=== PATIENT | male | born 2000 | race Hispanic/Latino ===

== ENCOUNTER 2022-11-12 17:58 | Emergency (ER) | payer BC ==
[2022-11-12] MEDS ORDERED: LORazepam 2 MG/ML VIAL ONE (18:39)
[2022-11-12 18:59] LABS: Absolute Lymphocytes (CBC) 2.6 K/uL (0.7-4.9); Lymphocytes % 18.6 % (15.3-44.8); MCV 88.4 fL (80-100); MPV 8.4 fL (7.6-11.3); RBC Red Blood Cell Count 5.43 M/uL (4.33-5.43)
[2022-11-12 19:09] LABS: Barbiturates NEGATIVE (NEGATIVE); Benzodiazepines NEGATIVE (NEGATIVE); Cocaine NEGATIVE (NEGATIVE); METHAMPHETAM NEGATIVE (NEGATIVE); Methadone NEGATIVE (NEGATIVE); Opiates NEGATIVE (NEGATIVE); Phencyclidine NEGATIVE (NEGATIVE); THC Cannibis NEGATIVE (NEGATIVE)
[2022-11-12 19:13] LABS: Protime INR 0.95
[2022-11-12 19:23] LABS: Albumin 4.6 g/dL (3.4-5.0); Bilirubin Direct 0.1 mg/dL (0-0.2); Bilirubin Total 0.4 mg/dL (0.2-1.0); Magnesium 2.2 mg/dL (1.6-2.4); Potassium 3.2 mmol/L (3.5-5.1); Protein, Total 8.4 g/dL (6.4-8.2); Troponin High Sensitivity 5.9 pg/mL (<58.9)
[2022-11-12] MEDS ORDERED: NA CHLORIDE 0.9% 500 ML ONE (19:37)
[2022-11-12] MEDS ORDERED: METHYLPREDNISOLONE 40 MG INJ ONE (19:37)
--- NOTE | 2022-11-12 20:04 | RAD REPORT ---
EXAM DESCRIPTION: RAD - Chest Single View - 11/12/2022 7:39 pm CLINICAL HISTORY: SOB Chest pain. COMPARISON: No comparisons FINDINGS: Portable technique limits examination quality. The lungs are grossly clear. The heart is normal in size. No displaced fractures. IMPRESSION: No acute intrathoracic process suspected.
--- NOTE | 2022-11-12 20:35 | EDPHYS ---
Physician Documentation [facility] Name: Ayden Danielle Age: 21 yrs Sex: Male : 2000 Arrival Date: 11/12/2022 Time: 18:00 Bed 5 Private MD: ED Physician Aram Cano HPI: 11/12 18:24 This 21 yrs old Male presents to ER via Ambulatory with complaints of cp Palpitations, Shortness Of Breath, Numbness Of Hand. 18:24 The patient has shortness of breath at rest. cp 18:24 Onset: The symptoms/episode began/occurred 3 day(s) ago. Duration: The symptoms are cp intermittent, with no pattern. The patient presents with a history of heart racing. Context: The symptoms occur without known cause. Associated signs and symptoms: Pertinent positives: numbness in extremities, Pertinent negatives: chest pain, diaphoresis, dizziness, fever, vomiting. Severity of symptoms: in the emergency department the symptoms are worse moderately. Patient denies any family history of cardiac disease and/or sudden at young age. Historical: - Allergies: 18:11 No Known Allergies; hb - Home Meds: 18:11 None [Active]; hb - PMHx: 18:11 None; hb - PSHx: 18:11 None; hb - Immunization history:: Adult Immunizations up to date. - Social history:: Smoking status: Patient denies any tobacco usage or history of. ROS: 18:30 Constitutional: Negative for body aches, chills, fever, poor PO intake. cp 18:30 Eyes: Negative for injury, pain, redness, and discharge. cp 18:30 ENT: Negative for drainage from ear(s), ear pain, sore throat, difficulty swallowing, difficulty handling secretions. 18:30 Cardiovascular: Positive for palpitations, Negative for chest pain, edema. 18:30 Respiratory: Positive for shortness of breath, at rest. Negative for cough. 18:30 Abdomen/GI: Negative for abdominal pain, vomiting, diarrhea, constipation. 18:30 Back: Negative for pain at rest, pain with movement, radiated pain. 18:30 Skin: Negative for rash. 18:30 Neuro: Positive for numbness, Negative for altered mental status, dizziness, headache, weakness. 18:30 All other systems are negative. Exam: 18:22 ECG was reviewed by the Attending Physician. cp 18:33 Constitutional: The patient appears in no acute distress, alert, awake, cp non-diaphoretic, non-toxic, well developed, well nourished, anxious. 18:33 Head/Face: Normocephalic, atraumatic. cp 18:33 Eyes: Periorbital structures: appear normal, Pupils: equal, round, and reactive to light and accomodation, Extraocular movements: intact throughout, Conjunctiva: normal, no exudate, no injection, Sclera: no appreciated abnormality, Lids and lashes: appear normal, bilaterally. 18:33 ENT: External ear(s): are unremarkable, Nose: is normal, Mouth: Lips: moist, Oral mucosa: pink and intact, moist, Posterior pharynx: Airway: no evidence of obstruction, patent. 18:33 Neck: ROM/movement: is normal, is supple, without pain, no range of motions limitations. 18:33 Chest/axilla: Inspection: normal. 18:33 Cardiovascular: Rate: tachycardic, Rhythm: regular, Edema: is not appreciated, JVD: is not appreciated. 18:33 Respiratory: the patient does not display signs of respiratory distress, Respirations: normal, no use of accessory muscles, no retractions, labored breathing, is not present, Breath sounds: are clear throughout, no decreased breath sounds, no stridor, no wheezing. 18:33 Abdomen/GI: Inspection: abdomen appears normal, Palpation: abdomen is soft and non-tender, in all quadrants. 18:33 Back: pain, is absent, ROM is normal. 18:33 Neuro: Orientation: to person, place \T\ time. Mentation: is normal, Motor: moves all fours, strength is normal, Sensation: no obvious gross deficits. 18:33 Psych: Behavior/mood is anxious, Judgement / Insight is normal. Delusions/hallucinations are not present. Vital Signs: 18:09 BP 164 / 72; Pulse 96; Resp 20; Temp 97.1; Pulse Ox 97% on R/A; Weight 74.84 kg; Height hb 5 ft. 10 in. (177.80 cm); Pain 2/10; 19:43 BP 134 / 80; Pulse 98; Resp 20 S; Pulse Ox 99% on R/A; aa9 20:55 BP 123 / 79; Pulse 84; Resp 20 S; Pulse Ox 99% on R/A; aa9 18:09 Body Mass Index 23.67 (74.84 kg, 177.80 cm) hb MDM: 18:13 Patient medically screened. maikel 20:33 Data reviewed: vital signs, nurses notes, lab test result(s), EKG, radiologic studies, cp plain films. 20:33 Test interpretation: by ED physician or midlevel provider: ECG, plain radiologic cp studies. Counseling: I had a detailed discussion with the patient and/or guardian regarding: the historical points, exam findings, and any diagnostic results supporting the discharge/admit diagnosis, lab results, radiology results, the need for outpatient follow up, a family practitioner, to return to the emergency department if symptoms worsen or persist or if there are any questions or concerns that arise at home. Response to treatment: the patient's symptoms have markedly improved after treatment, and as a result, I will discharge patient. 11/12 18:24 Order name: Basic Metabolic Panel; Complete Time: 19:28 11/12 19:28 Interpretation: Abnormal: K 3.2; GLUC 112. cp 11/12 18:24 Order name: CBC with Diff; Complete Time: 19:05 11/12 19:05 Interpretation: Normal except: WBC 14.10; PLT 418; NEUT A 10.3. 11/12 18:24 Order name: D-Dimer; Complete Time: 19:18 11/12 18:24 Order name: LFT's; Complete Time: 19:28 11/12 19:28 Interpretation: Normal except: AST 40; ALT 78; TP 8.4; GLOB 3.8. 11/12 18:24 Order name: Magnesium; Complete Time: 19:28 11/12 18:24 Order name: NT PRO-BNP; Complete Time: 19:28 11/12 18:24 Order name: PT-INR; Complete Time: 19:18 cp 11/12 18:24 Order name: Troponin HS; Complete Time: 19:28 cp 11/12 18:24 Order name: XRAY Chest (1 view); Complete Time: 20:07 cp 11/12 20:07 Interpretation: Report review. 11/12 18:24 Order name: EKG; Complete Time: 18:25 11/12 18:24 Order name: UDS; Complete Time: 19:18 cp 11/12 18:24 Order name: Cardiac monitoring; Complete Time: 18:33 cp 11/12 18:24 Order name: EKG - Nurse/Tech; Complete Time: 18:30 cp 11/12 18:24 Order name: IV Saline Lock; Complete Time: 18:49 cp 11/12 18:24 Order name: Labs collected and sent; Complete Time: 18:49 cp 11/12 18:24 Order name: O2 Per Protocol; Complete Time: 18:33 cp 11/12 18:24 Order name: O2 Sat Monitoring; Complete Time: 18:33 cp EC:22 Rate is 103 beats/min. Rhythm is regular. [place] interval is normal. QRS interval is cp normal. QT interval is normal. T waves are Inverted in lead aVR. Interpreted by me. Reviewed by me. Administered Medications: 18:51 Drug: Ativan (LORazepam) 0.5 mg Route: IVP; Site: right antecubital; kb3 21:08 Follow up: Response: No adverse reaction aa9 19:42 Drug: SOLU-Medrol (methylPrednisoLONE) 80 mg Route: IVP; Site: right antecubital; aa9 21:07 Follow up: Response: No adverse reaction aa9 19:42 Drug: NS 0.9% 500 ml Route: IV; Rate: bolus; Site: right antecubital; aa9 21:07 Follow up: Response: No adverse reaction; IV Status: Completed infusion; IV Intake: aa9 500ml Disposition Summary: 11/12/22 20:34 Discharge Ordered Location: Home cp Problem: new cp Symptoms: have improved cp Condition: Stable cp Diagnosis - Shortness of breath cp Followup: cp - With: Private Physician - When: 2 - 3 days - Reason: Recheck today's complaints Discharge Instructions: - Discharge Summary Sheet cp - Shortness of Breath, Adult cp Forms: - Medication Reconciliation Form cp - Thank You Letter cp - Antibiotic Education cp - Prescription Opioid Use cp Prescriptions: - albuterol sulfate 90 mcg/actuation Inhalation HFA aerosol inhaler - inhale 1 puff by INHALATION route every 6 hours; 1 Inhaler; Refills: 0, Product cp Selection Permitted - Medrol (Wally) 4 mg Oral Tablets, Dose Pack - take 1 tablet by ORAL route as directed - follow package instructions; 1 cp packet; Refills: 0, Product Selection Permitted Signatures: Dispatcher [employer] Aram Quintero MD MD cha Page, Corey, Mallorie Huggins cp, RN RN hb Stewart Rogers, RN RN bp Brea Molina, RN RN aa9 Nicole Radford RN RN kb3
--- NOTE | 2022-11-12 20:35 | ER ---
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 Coronavirus screen: Client presents with at least one sign or symptom that may indicate coronavirus-19. Provider contacted for isolation considerations. Ebola Screen: No symptoms or risks identified at this time. Initial Sepsis Screen: Does the patient meet any 2 criteria? No. Patient's initial sepsis screen is negative. Does the patient have a suspected source of infection? No. Patient's initial sepsis screen is negative. Risk Assessment: Do you want to hurt yourself or someone else? Patient reports no desire to harm self or others. Onset of symptoms was November 10, 2022. 18:09 Method Of Arrival: Ambulatory hb 18:09 Acuity: MARIELA 3 hb Triage Assessment: 18:10 General: Appears distressed, Behavior is cooperative, appropriate for age, anxious. bp Pain: Denies pain. EENT: No deficits noted. Neuro: Level of Consciousness is awake, alert, obeys commands, Oriented to Appropriate for age. Cardiovascular: Rhythm is sinus rhythm. Respiratory: Reports shortness of breath Onset: The symptoms/episode began/occurred at an unknown time. the patient has mild shortness of breath. GI: No signs and/or symptoms were reported involving the gastrointestinal system. : No signs and/or symptoms were reported regarding the genitourinary system. Derm: No deficits noted. Musculoskeletal: No deficits noted. Historical: - Allergies: 18:11 No Known Allergies; hb - Home Meds: 18:11 None [Active]; hb - PMHx: 18:11 None; hb - PSHx: 18:11 None; hb - Immunization history:: Adult Immunizations up to date. - Social history:: Smoking status: Patient denies any tobacco usage or history of. Screenin:10 [facility] ED Fall Risk Assessment (Adult) History of falling in the last 3 months, bp including since admission No falls in past 3 months (0 pts). Abuse screen: Denies threats or abuse. Denies injuries from another. Nutritional screening: No deficits noted. Tuberculosis screening: No symptoms or risk factors identified. Assessment: 18:10 General: SEE TRIAGE NOTE. bp 19:42 General: Appears in no apparent distress. comfortable, slender, Behavior is calm, aa9 cooperative, appropriate for age. Pain: Denies pain. Neuro: Level of Consciousness is awake, alert, obeys commands, Oriented to person, place, time, situation. Cardiovascular: Rhythm is regular. Respiratory: Airway is patent Respiratory effort is even, unlabored. Respiratory: Breath sounds are clear. GI: No signs and/or symptoms were reported involving the gastrointestinal system. : No signs and/or symptoms were reported regarding the genitourinary system. 21:06 Reassessment: Patient appears in no apparent distress at this time. Patient is alert, aa9 oriented x 3, equal unlabored respirations, skin warm/dry/pink. pt discharge instructions provided to family and pt, denies concerns. Vital Signs: 18:09 BP 164 / 72; Pulse 96; Resp 20; Temp 97.1; Pulse Ox 97% on R/A; Weight 74.84 kg; Height hb 5 ft. 10 in. (177.80 cm); Pain 2/10; 19:43 BP 134 / 80; Pulse 98; Resp 20 S; Pulse Ox 99% on R/A; aa9 20:55 BP 123 / 79; Pulse 84; Resp 20 S; Pulse Ox 99% on R/A; aa9 18:09 Body Mass Index 23.67 (74.84 kg, 177.80 cm) ED Course: 18:00 Patient arrived in ED. mr 18:05 Aram Maki PA is PHCP. cp 18:05 Aram Cano MD is Attending Physician. cp 18:10 Patient has correct armband on for positive identification. Placed in gown. Bed in low bp position. Call light in reach. Side rails up X2. Adult w/ patient. 18:11 Triage completed. hb 18:11 Arm band placed on. hb 18:19 Stewart Rogers, RN is Primary Nurse. bp 18:52 UDS Sent. kb3 18:52 Basic Metabolic Panel Sent. kb3 18:52 CBC with Diff Sent. kb3 18:52 D-Dimer Sent. kb3 18:52 LFT's Sent. kb3 18:52 Magnesium Sent. kb3 18:52 NT PRO-BNP Sent. kb3 18:52 PT-INR Sent. kb3 18:52 Troponin HS Sent. kb3 18:52 No provider procedures requiring assistance completed. Inserted saline lock: 22 gauge kb3 in right antecubital area, using aseptic technique. Blood collected. 19:40 XRAY Chest (1 view) In Process Unspecified. EDMS 19:45 Family accompanied patient. aa9 21:06 IV discontinued, intact, bleeding controlled, No redness/swelling at site. Pressure aa9 dressing applied. Administered Medications: 18:51 Drug: Ativan (LORazepam) 0.5 mg Route: IVP; Site: right antecubital; kb3 21:08 Follow up: Response: No adverse reaction aa9 19:42 Drug: SOLU-Medrol (methylPrednisoLONE) 80 mg Route: IVP; Site: right antecubital; aa9 21:07 Follow up: Response: No adverse reaction aa9 19:42 Drug: NS 0.9% 500 ml Route: IV; Rate: bolus; Site: right antecubital; aa9 21:07 Follow up: Response: No adverse reaction; IV Status: Completed infusion; IV Intake: aa9 500ml Medication: 18:10 VIS not applicable for this client. bp Intake: 21:07 IV: 500ml; Total: 500ml. aa9 Outcome: 20:34 Discharge ordered by MD. cp 21:06 Discharged to home ambulatory, with family. aa9 21:06 Condition: stable 21:06 Discharge instructions given to patient, family, Instructed on discharge instructions, follow up and referral plans. medication usage, Demonstrated understanding of instructions, follow-up care, medications, Prescriptions given X 2. 21:07 Patient left the ED. aa9 Signatures: Dispatcher [employer] EDOR Sarah Franks Aram Maki PA PA cp Baxter, Heather, Stewart Cline RN, RN RN Brea Benson, SANTY RN aa9 Nicole Radford, RN RN kb3
[2022-11-12 21:13] VITALS: TEMP 97.1
[2022-11-12 21:14] VITALS: O2SAT 99
[2022-11-12 21:15] VITALS: BP 123/79
--- NOTE | 2022-11-14 13:43 | EKG ---
Test Date: 2022-11-12 Test Time: 18:16:56 Hands Assembler: HB MEASUREMENT RESULTS: Intervals: Rate: 103 MA: 130 QRSD: 94 QT: 330 QTc: 432 [place]: P: 62 MA: 130 QRS: 44 T: 47 INTERPRETIVE STATEMENTS: Sinus tachycardia Otherwise normal ECG No previous ECG available for comparison Electronically Signed On 11-14-22 13:39:30 DETECTIVE SERGEANT by Camilo Hebert
== END 2022-11-12 21:07 | disposition home or self-care (01) ==
LOC: ER 17:58
DX: R06.02 Shortness of breath (principal); R07.89 Other chest pain
CPT/HCPCS: 93005; 85025; 80048; 36415; 83735; 85610; 85379; 80076; 84484; 83880; 80307; 71045; J7040; J2920; 96361; 96374; 96375; 99284